=== PATIENT | male | born 1995 | race Caucasian/White ===

== ENCOUNTER 2019-01-21 12:44 | Emergency (ER) | payer SELFPAY ==
[2019-01-21 12:45] VITALS: BP 137/87; PULSE 85; RESP 18; TEMP 37.1; O2SAT 100; BMI 21.7
--- NOTE | 2019-01-21 13:02 | ED.VISSUMM ---
- ER Visit Summary Date of Service: 01/21/19 Chief Complaint: Sore throat, headache History of Present Illness: The patient is a 23 M who is otherwise healthy presents to the emergency department with sore throat and headache. Patient states he had a sore throat for the past 7 days. He states over the past 2 days, he developed a dull progressive headache. He describes it as pressure behind his eyes. He denies nausea or vomiting. He denies any trauma. He states that he is been having increasing sore throat, pain with swallowing, and a nonproductive cough. He is unsure if he had fever. He denies any chills or sweats. Patient is otherwise healthy. He is on no daily medications. He is no history of immunosuppression. He does have history of strep pharyngitis. Physical Examination: Vital signs reviewed General: Well-nourished, well-developed Head: Normocephalic, atraumatic ENT: Oropharynx widely patent. Exudate on both tonsils. Uvula midline. No evidence of retropharyngeal or peritonsillar abscess. Eyes: Pupils equal and reactive, extraocular muscles intact Neck, supple, no lymphadenopathy Heart: Regular rate and rhythm Respiratory: No distress, clear bilaterally Abdomen: Soft, nontender, nondistended, no peritoneal signs Back: Nontender Extremities: Nontender, no edema, no cords Skin: Normal color no rash Neuro: Alert and oriented, no focal or lateralizing deficits Test Results: [] Emergency Department Course and Treatment: Patient presents with myalgias, sore throat, headache. He does have evidence of exudative pharyngitis without evidence of abscess. Rapid strep was obtained. The patient was given a liter fluids, Toradol, and Decadron. He did have marked improvement of his symptoms. His rapid strep was negative, but given the duration of his symptoms and other criteria I am going to treat him prophylactically. Based on the patient's drug allergies, he will be started on azithromycin. At this time, I do feel that he is safe for outpatient therapy. He is comfortable with this plan of care and will be discharged home. Treatment Plan: [] Disposition: Discharge Impression: Exudative pharyngitis This note was generated with [employer] software. It may contain incorrect words, spelling, and punctuation that were not noted in review of the chart prior to signing ED Disposition - Plan for ED Patient: Instructions: ED Strep Pharyngitis Poss Prescriptions: Azithromycin [Zithromax] 250 mg PO DAILY #4 tab Referrals: Avila Cavazos REGULATORY AFFAIRS MANAGER-C [Primary Care Provider] -
[2019-01-21] MEDS: Ketorolac 30 MG/ML Syringe IV (13:16)
[2019-01-21] MEDS: 0.9% Normal Saline 1,000 ML 1000 ML IV (13:16)
[2019-01-21] MEDS: Azithromycin 250 MG Tablet 500 MG PO (14:29)
[2019-01-21 14:33] VITALS: BP 126/82; PULSE 94; RESP 18; TEMP 36.9; O2SAT 97
== END 2019-01-21 14:34 | disposition home or self-care (01) ==
PROVIDERS: Emergency Provider Emergency Medicine; Family Provider Nurse Practitioner Family; PCP Nurse Practitioner Family
DX: J02.9 Acute pharyngitis, unspecified (principal)
CPT/HCPCS: 87880; 96374; 96375; 99285; J7030; A4216

== ENCOUNTER 2019-02-21 17:20 | Emergency (ER) | payer SELFPAY ==
[2019-02-21 17:20] VITALS: BP 127/76; PULSE 90; RESP 16; TEMP 36.5; O2SAT 99; BMI 19.2
--- NOTE | 2019-02-21 18:41 | CT_ITS ---
STUDY: CT BRAIN WITHOUT CONTRAST REASON FOR EXAM: Male, 23 years old. Headache for 3 days RADIATION DOSAGE (If Supplied By Facility): CTDIvol = ( 44.99 ) mGy, DLP = ( 796.11 ) mGycm TECHNIQUE: Transaxial CT imaging of the brain was performed without administration of intravenous contrast material. Individualized dose optimization techniques were used for this CT. COMPARISON: February 28, 2017 FINDINGS: Normal soft tissue structures. Normal calvarium. Normal size ventricles and extra-axial spaces for the patient's age. Normal white matter tracts of the cerebral hemispheres. Normal basal ganglia and thalami. Normal brainstem. Normal cerebellum. There is no intracranial hemorrhage. There are no findings of an acute ischemic infarction. Mild mucosal thickening of left maxillary and anterior ethmoid air cells.. CT/Brain/Head without Contrast IMPRESSION: Normal unenhanced CT scan of the brain. Mild left maxillary and ethmoid sinus disease Electronically Signed: Devyn Ayala MD at 19:32 EDT , Service support ,
--- NOTE | 2019-02-21 18:42 | ED.VISSUMM ---
- ER Visit Summary Date of Service: 02/21/19 Chief Complaint: Headache History of Present Illness: The patient is a 23 M generalized diffuse headache progressed over 3 days. No head trauma. No fevers. No aura. Occasional photophobia, complains of phonophobia and nausea. Reports similar symptoms in 2017 when he was found to have a pneumocephalus. Reports has a nasal bleed and a Rhino Rocket placed at that time he states the left return with severe headache with image studies noting the pneumocephalus. There is no spinal procedures. He states resolved in 2 days while in the hospital. No recent procedures. Use ibuprofen yesterday with relief. No past medical history besides stated. Physical Examination: General: Alert and oriented ?3, no acute distress HEENT: Normocephalic, atraumatic. Moist mucosa membranes Neck: supple, nontender. No meningismus Cardiovascular: Regular rate and rhythm, no murmurs Respiratory: Normal breath sounds, symmetric, no distress Abdomen: Soft, nontender, nondistended Extremities: Nontender, no edema, pulses intact ?4 Neuro: no focal neurological deficits. Cranial 2 through 12 intact. Test Results: CT brain: No intracranial process mild left ethmoid and left maxillary sinus disease Emergency Department Course and Treatment: Patient with no focal neurological deficits. Due to reported similar symptoms with pneumocephalus CT head was obtained negative for intracranial process. Treated migraine cocktail fluids Reglan Benadryl reevaluation improving symptoms. Discharged outpatient follow-up. Signs and symptoms discussed to return. Treatment Plan: [] Disposition: Discharge Impression: Migraine headache This note was generated with [employer] dictation software. It may contain incorrect words, spelling, and punctuation that were not noted in review of the chart prior to signing ED Disposition - Plan for ED Patient: Disposition: Home or Assisted Living Diagnosis: Migraine headache Instructions: ED Headache Migraine Referrals: Avila Cavazos NP-C [Primary Care Provider] - 3-5 Days
[2019-02-21] MEDS: Metoclopramide 10 MG/2 ML Vial IV (19:02)
[2019-02-21] MEDS: 0.9% Normal Saline 1,000 ML 999 ML IV (19:02)
[2019-02-21] MEDS: DiphenhydrAMINE 50 MG/ML Syringe 25 MG IV (19:02)
[2019-02-21 19:44] VITALS: PULSE 87; RESP 16; O2SAT 97
[2019-02-21 20:21] VITALS: BP 118/79; PULSE 87; RESP 16; O2SAT 98
== END 2019-02-21 20:22 | disposition home or self-care (01) ==
PROVIDERS: Emergency Provider Emergency Medicine; Family Provider Nurse Practitioner Family; PCP Nurse Practitioner Family
DX: G43.909 Migraine, unspecified, not intractable, without status migrainosus (principal)
CPT/HCPCS: 70450; 96361; 96374; 96375; 99283; J7030

== ENCOUNTER 2020-07-27 18:31 | Emergency (ER) | payer MEDICAID, SELFPAY ==
[2020-07-27 18:31] VITALS: BP 125/103; PULSE 97; RESP 18; TEMP 36.7; O2SAT 100; BMI 18.8
[2020-07-27 18:47] VITALS: BP 125/103; PULSE 97; RESP 18; TEMP 36.7; O2SAT 100
--- NOTE | 2020-07-27 19:04 | ED.DCSUM_ITS ---
History of Present Illness Chief Complaint: Cold Sx Informant: Patient Onset: Days - 2 Narrative: Presents with COVID symptoms for 2 days. Started out with headache sore throat dry cough and myalgias. States had loose stools. No fevers. Works at [employer] [facility] [place]. Also as part of , over the weekend just returned from training. Reports there has been COVID patrons at the place. Denies chest pains or shortness of breath. History of tobacco. No other complaints. Prior similar symptoms: No Past Medical History - Allergies and Home Meds Allergies/Adverse Reactions: Allergies amoxicillin Allergy (Verified 07/27/20 18:31) Unknown Primary Care Physician: Avila Cavazos NP, [employer] [facility] [Primary Care Provider] - Past Medical History: None Smoking Status: Current every day smoker Review of Systems General: Denies: Chills, Fever, Sweats Eyes: Denies: Visual changes - bilaterally, Diplopia ENT: Denies: Rhinorrhea, Sore throat Cardiovascular: Denies: Chest pain, Palpitations Respiratory: Reports: Cough. Denies: Dyspnea, Dyspnea on exertion Gastrointestinal: Reports: Diarrhea. Denies: Abdominal pain, Nausea, Vomiting, Melena, Hematochezia Genitourinary: Denies: Dysuria, Hematuria, Frequency Musculoskeletal: Reports: Myalgias. Denies: Back pain, Extremity Pain Skin: Denies: Rash, Wounds Neurological: Reports: Headache. Denies: Weakness, Numbness Physical Exam Vital Signs/Narrative: Vital Signs Temp Pulse Resp BP Pulse Ox 07/27/20 18:47 98.1 F 97 18 125/103 H 100 07/27/20 18:31 98.1 F 97 18 125/103 H 100 Inital Vital Signs reviewed: Yes General: Well nourished, Well developed, No Acute Distress Head: Normocephalic, Atraumatic Eyes: Perrl, EOMI ENT: Moist mucous membranes, No rhinorrhea Neck: Supple, Nontender, - - No meningismus. Cardiovascular: Regular rate, Regular rhythm, No murmurs Respiratory: No distress, CTA bilaterally, Chest nontender Abdomen: Soft, Nontender, Nondistended, Normal bowel sounds Back: Nontender, Normal Inspection Extremities: Nontender, No edema Skin: Normal color, No rash Neurological: Alert, Oriented x3, Cranial nerves II-XII grossly intact, Normal Strength, Normal Sensation Psychological: Normal affect, Normal Mood Diagnostic/Tx/Re-eval - Medical Decision Making Patient vitals stable pulse ox 100%. He is nontoxic. He is presenting with suspected COVID symptoms. He is on day 2. COVID testing obtained and sent out and pending. I discussed using Tylenol continue oral fluids. Patient nontoxic vital stable and did not feel imaging or labs are necessary. Strict signs and symptom discussed to return. In the meantime, patient will continue isolation.. Discussed with his job there COVID protocols. Otherwise he will follow-up with his PCP. All questions were answered. ED Disposition - Plan for ED Patient: Disposition: Home or Assisted Living Diagnosis: Suspected COVID-19 virus infection, Cephalgia, Myalgia, Diarrhea Referrals: Avila Cavazos MAIL SORTER AND DELIVERY, [facility] [Primary Care Provider] - 5-7 Days Additional Instructions: Suspect covid infection. Continue Tylenol every 6 hours as needed for headache. Continue oral fluids. COVID testing is pending.
[2020-07-27 20:15] VITALS: RESP 18
--- NOTE | 2020-07-27 20:15 | ED.RN ---
PT GIVEN WRITTEN AND VERBAL DISCHARGE INSTRUCTIONS. EDUCATED ON MY CHART SET UP. PT VERBALIZES UNDERSTANDING AND DENIES ANY FURTHER QUESTIONS. PT AMBULATES OUT OF DEPT BY SELF.
== END 2020-07-27 20:16 | disposition home or self-care (01) ==
LOC: ED 19:09
PROVIDERS: Emergency Provider Emergency Medicine; PCP Nurse Practitioner Family
DX: R51 Headache (principal); R05 Cough; J02.9 Acute pharyngitis, unspecified; R19.7 Diarrhea, unspecified; M79.10 Myalgia, unspecified site; Z20.828 Contact with and (suspected) exposure to other viral communicable diseases; Z87.891 Personal history of nicotine dependence
CPT/HCPCS: 87635; 99282; C9803; U0003

== ENCOUNTER 2021-05-24 13:52 | Emergency (ER) | payer MEDICAID, SELFPAY ==
[2021-05-24 13:53] VITALS: BP 121/75; PULSE 82; RESP 18; TEMP 36.5; O2SAT 97; BMI 19.3
--- NOTE | 2021-05-24 16:06 | CT_ITS ---
STUDY: CT BRAIN WITHOUT CONTRAST REASON FOR EXAM: Male, 25 years old. headache RADIATION DOSAGE (If Supplied By Facility): CTDIvol = ( ) mGy, DLP = ( ) mGycm TECHNIQUE: Transaxial CT imaging of the brain was performed without administration of intravenous contrast material. Individualized dose optimization techniques were used for this CT. COMPARISON: 02/21/2019 FINDINGS: Normal soft tissue structures. Normal calvarium. Normal size ventricles and extra-axial spaces for the patient''s age. Normal white matter tracts of the cerebral hemispheres. Normal basal ganglia and thalami. Normal brainstem. Normal cerebellum. There is no intracranial hemorrhage. There are no findings of an acute ischemic infarction. Normal visualized paranasal sinuses. CT/Brain/Head without Contrast IMPRESSION: Normal unenhanced CT scan of the brain. Electronically Signed: Janak Nieto MD at 16:49 EDT Tel , Service support ,
--- NOTE | 2021-05-24 16:07 | EX.ED.VIS.HA ---
HPI History of Present Illness Chief Complaint: Headache Detail of Chief Complaint: Started 2 to 3 weeks ago. Informant: patient Onset/Context/Timing Current Severity: 06/19 Narrative Narrative: Patient presents with throbbing headache to frontal scalp that started initially 2 to 3 weeks ago. Patient states that he woke up with it 1 morning. He has had nausea and vomited a couple of times. Patient states that he is tried [id number] ibuprofen as well as Tylenol and tried hydrating however the headache only goes away for about an hour and then comes back. Patient has also tried smoking marijuana to see if it would help it. Patient states that he has a history of migraines. He had years ago headaches from area around his brain related to balloon insufflation of his nose related to a nosebleed. Patient denies fever or recent illness otherwise. Denies any falls or head injuries. He denies carbon monoxide exposures. Prior similar symptoms: Yes [facility] Medical History (Updated 05/24/21 @ 17:[address] Bg Prado, DO) ADHD Depression with anxiety Tobacco abuse Home Medications NK 07/27/20 [History Last Taken Unknown] Allergy/AdvReac Type Severity Reaction Status Date / Time amoxicillin Allergy Unknown Verified 05/24/21 13:53 Family History Grandmother Heart disease Grandfather Heart disease Colon cancer Unknown Diabetes strong family hx of diabetes on father's side, most everyone has either type 1 or 2. Surgical History H/O rhinoplasty Social History (Updated 11/21/17 @ 14:25 by Avila Cavazos NP, [employer]) Smoking Status: Current every day smoker tobacco type: e-cigarettes Tobacco: How many years used: 4 alcohol intake: current alcohol intake frequency: a few times a month Alcohol type: hard liquor substance use type: marijuana what type of physical activity do you participate in: aerobics and weight training frequency: 3-4 times per week ROS ROS ED Constitutional Constitutional ED: Reports systems reviewed and no addt'l complaints, except as documented; Denies body ache(s), change in weight or chills Eyes Eyes: Denies acute decrease in peripheral vision, change in vision, double vision or loss of vision ENT ENT ED: Reports none; Denies ear pain, lip swelling, loss taste/smell, neck pain, otalgia or sore throat Cardiovascular Cardiovascular: Reports none; Denies abdominal pain, chest pain with activity, leg edema, lightheadedness, palpitations, rapid heart rate or syncope Respiratory/Chest Respiratory/Chest: Reports none; Denies change in mental status, dry cough, dyspnea, hemoptysis, shortness of breath at rest or shortness of breath with exertion Gastrointestinal Gastrointestinal: Reports none and nausea; Denies abdominal pain, change in stool character, diarrhea, hematemesis, hematochezia, melena, rectal bleeding or vomiting Genitourinary Genitourinary ED: Reports none; Denies abdominal discomfort, anuria, dysuria, genital pain or polyuria Musculoskeletal Musculoskeletal: Reports none; Denies arthralgias, back pain, difficulty walking, extremity pain, muscle weakness or myalgias Integumentary Reports none; Denies abscess or rash Neurologic Neurologic: Reports none and headache(s); Denies abnormal gait, confusion, focal weakness, frequent falls, loss of vision, numbness, paresthesias, radicular pain, vertigo or weakness Psychiatric Psychiatric: Reports systems reviewed and no addt'l complaints, except as documented and none; Denies behavioral changes, confusion, difficulty concentrating, hallucinations, suicidal ideation, tactile hallucinations or visual hallucinations Endocrine Endocrinology: Denies none, cold intolerance, excessive sweating, fatigue or heat intolerance Hematologic/Lymphatic Hematologic/Lymphatic: Reports none; Denies anemia, easy bleeding or easy bruising Allergic/Immunologic Allergic/Immunologic ED: Denies as per HPI, none, lip swelling, mouth swelling, throat swelling, tongue swelling or hives EXAM Physical Exam Const Vital Signs: 05/24/21 13:53 Temperature 97.7 F L Temperature Source Temporal Pulse Rate 82 Respiratory Rate 18 Blood Pressure 121/75 H Blood Pressure Mean 90 Pulse Ox 97 Oxygen Delivery Method Room Air Positive well nourished and well developed General Appearance ED: well developed and NAD HEENT Reports TM's clear and moist mucous membranes normocephalic and atraumatic; Negative for trauma or tenderness Tympanic Membrane ED: Yes TM's clear Eyes PERRL and EOMs intact bilaterally General Eye ED: Negative for pale conjunctiva or scleral icterus Neck no lymphadenopathy, supple and no JVD General: Negative for tenderness Chest Wall inspection of chest normal and palpation of chest normal Chest: Negative for tenderness Resp normal respiratory effort and clear to auscultation bilaterally Effort and Inspection: Negative for respiratory distress or pain with movement Auscultation: Negative for rhonchi, wheezes or diminished lung sounds Cardio regular rate, regular rhythm, S1 normal heart sound, S2 normal heart sound and no murmurs Peripheral Pulses: pulses 2+ throughout GI normal to inspection, nondistended, normoactive bowel sounds, soft to palpation, non-tender, non-distended and no masses Back/Spine no CVA tenderness and no thoracic nor lumbar tenderness Extremity normal to inspection General Extremety ED: Negative for edema General Extremity: Negative for edema Neuro oriented x3, CN's II-XII intact bilaterally, no sensory deficits noted and gait normal Neuro Narrative: Finger-nose and heel abrams testing within normal limits, negative Romberg, negative , Fundi benign Sensorium / Orientation: awake, alert, oriented to person, oriented to place and oriented to time Motor Exam: strength 5/5 throughout and strength abnormal Psych mental status grossly normal Skin no rashes or lesions noted and no wounds MDM MDM MDM Narrative Medical decision making narrative: Patient's headache mostly resolved with treatment in the emergency department. Patient also given Decadron [address] scan of the brain without contrast was unremarkable. Radiography Diagnostic Testing: Radiology Impression Brain CT 05/24/21 16:06 IMPRESSION: Normal unenhanced CT scan of the brain. Electronically Signed: Janak Nieto MD at 16:49 EDT Tel , Service support , Discharge Plan Triage Chief Complaint: Headache ED Provider: Bg Prado Dx/Rx/DC Orders Clinical Impression: Headache, migraine Instructions: ED, Migraine (Classical) Prescriptions: No Action NK RF: 0 Primary Care Provider: Avila Cavazos NP Referrals: Avila Cavazos NP, [employer] [Primary Care Provider] - 3-5 Days Disposition Disposition: Home, Self Care
[2021-05-24] MEDS: Ketorolac 30 MG/ML Syringe IV (16:41)
[2021-05-24] MEDS: 0.9% Normal Saline 1,000 ML 1000 ML IV (16:41)
[2021-05-24] MEDS: Metoclopramide 10 MG/2 ML Vial IV (16:41)
[2021-05-24] MEDS: DiphenhydrAMINE 50 MG/ML Syringe 25 MG IV (16:41)
[2021-05-24] MEDS: dexAMETHasone 10 MG/ML Vial IV (17:19)
[2021-05-24 17:24] VITALS: BP 113/67; PULSE 62; RESP 16; O2SAT 100
== END 2021-05-24 17:25 | disposition home or self-care (01) ==
PROVIDERS: Emergency Provider Emergency Medicine; PCP Nurse Practitioner Family
DX: G43.909 Migraine, unspecified, not intractable, without status migrainosus (principal); F90.9 Attention-deficit hyperactivity disorder, unspecified type; F17.290 Nicotine dependence, other tobacco product, uncomplicated
CPT/HCPCS: 70450; 96361; 96374; 96375; 99283; J7030; A4216